=== PATIENT | female | born 1975 | race Caucasian/White ===

== ENCOUNTER → 2017-05-26 | Outpatient (CLI) | payer MEDICAID ==
[~2017-05-26] MED LIST: ALPR1TAB2; ALPR1TAB5 PO; CLON0.5T; DIAZ10TA PO; DICY10CA53 PO; ESOM40CA PO; GABA300C PO; HYDR25TA6 PO; LAMO200T3 PO; OXYC-307 PO; PROP60CA PO; QUET100T4 PO; QUET50TA5 PO; SPIR50TA2 PO; TIZA2CAP PO; VENL75CA PO; VENL75CA6 PO; ZIPR20CA3 PO; ZOLP10TA PO
== END | disposition home or self-care (01) ==
LOC: CARD 13:10
PROVIDERS: ATTEND Psychiatry & Neurology Neurology
DX: R41.3 Other amnesia (principal)
CPT/HCPCS: 95819